=== PATIENT | male | born 2000 | race Caucasian/White ===

== ENCOUNTER 2020-11-11 20:23 | Emergency (ER) | payer BC, MEDICAID, OTHER ==
[2020-11-11] MEDS ORDERED: traMADol 50 MG Tab PO ONE (20:24)
--- NOTE | 2020-11-11 21:20 | ER ---
DATE SEEN: 11/11/2020 CHIEF COMPLAINT: Frostbite. HISTORY OF PRESENT ILLNESS: A 19-year-old male who was working on his truck this morning in below zero temperatures. Complains of pain in the finger tips on both hands. He has tried Tylenol with minimal relief. He is otherwise healthy with no active medical problems except GERD. REVIEW OF SYSTEMS: No fever or chills. PAST MEDICAL HISTORY: Up-to-date on immunizations. PHYSICAL EXAMINATION: GENERAL: He is nontoxic. VITAL SIGNS: His blood pressure is 157/91, pulse 105, temperature 97.2. EXTREMITIES: Showed redness of the distal phalanges on both hands which robby with pressure. Extremely tender and painful. IMPRESSION: Frostnip. PLAN: To keep him warm, use Tylenol as needed and a prescription for tramadol 50 mg t.i.d. p.r.n. was provided. /[id number] 2112 DANIA/GRECIA
== END 2020-11-11 21:02 | disposition home or self-care (01) ==
LOC: FB.ED 20:23
DX: T33.532A Superficial frostbite of left finger(s), initial encounter (principal); T33.531A Superficial frostbite of right finger(s), initial encounter
CPT/HCPCS: 99283; A9270-GY

== ENCOUNTER 2023-01-13 09:38 | Emergency (ER) | payer OTHER ==
[2023-01-13] MEDS ORDERED: Sodium Chloride 0.9% 10 ML Syringe FLUSH PRN (10:28)
[2023-01-13] MEDS ORDERED: Ketorolac 30 MG/ML SDV IVPUSH ONE (10:28)
[2023-01-13] MEDS ORDERED: Ondansetron 4 MG/2 ML SDV IVPUSH ONE (10:29)
[2023-01-13] MEDS ORDERED: Sodium Chloride 0.9% 1,000 ML IV SCH (10:30)
[2023-01-13 11:06] LABS: ESTIMATED GFR 79 mL/min (>60)
== END 2023-01-13 11:53 | disposition home or self-care (01) ==
LOC: FB.ED 09:38
DX: U07.1 COVID-19 (principal); A08.39 Other viral enteritis; Z88.0 Allergy status to penicillin
CPT/HCPCS: 36415; 71045; 80053; 85025; 96361; 96374; 96375; 99285; J1885; J2405; J3490; J7030

== ENCOUNTER 2025-05-13 15:58 | Emergency (ER) | payer OTHER ==
[2025-05-13] MEDS: Ketorolac 30 MG/ML SDV IM ONE (16:35)
== END 2025-05-13 17:05 | disposition home or self-care (01) ==
LOC: FB.ED 15:58
DX: L24.2 Irritant contact dermatitis due to solvents (principal); F17.210 Nicotine dependence, cigarettes, uncomplicated; Z88.0 Allergy status to penicillin; Z79.899 Other long term (current) drug therapy
CPT/HCPCS: 36415; 80320; 96374; 99000; 99283; J1885; G0480

== ENCOUNTER 2025-08-01 11:24 | Emergency (ER) | payer OTHER ==
[2025-08-01] MEDS ORDERED: Lidocaine 1% with EPINEPHrine 1:100,000 20 ML MDV INFILT ONE (11:25)
== END 2025-08-01 12:23 | disposition other institution (70) ==
LOC: FB.ED 11:24
DX: S01.112A Laceration without foreign body of left eyelid and periocular area, initial encounter (principal); F17.210 Nicotine dependence, cigarettes, uncomplicated; Z88.0 Allergy status to penicillin; Z79.899 Other long term (current) drug therapy; W22.8XXA Striking against or struck by other objects, initial encounter; Y93.89 Activity, other specified; Y99.0 Civilian activity done for income or pay
CPT/HCPCS: 12011; 99284; J2004